=== PATIENT | male | born 1955 | race Caucasian/White ===

== ENCOUNTER → 2023-12-14 12:00 | Outpatient (REF) | payer MEDICARE, SELFPAY | LOC: DHSLP 12:00 | PROVIDERS: ATTENDING PHYSICIAN Internal Medicine; FAMILY PHYSICIAN Family Medicine | DX: G47.33 Obstructive sleep apnea (adult) (pediatric) (principal) | CPT/HCPCS: 95800 ==

== ENCOUNTER → 2024-03-05 11:44 | Outpatient (REF) | payer MEDICARE, SELFPAY | LOC: DHSLP 11:44 | PROVIDERS: ATTENDING PHYSICIAN Internal Medicine; FAMILY PHYSICIAN Family Medicine | DX: G47.33 Obstructive sleep apnea (adult) (pediatric) (principal) | CPT/HCPCS: 95811 ==

== ENCOUNTER 2024-12-06 06:20 | Day surgery (SDC) | payer MEDICARE, SELFPAY ==
[2024-12-06 07:36] LABS: Glucose - Point of Care 70 mg/dl (70-99)
== END 2024-12-06 08:54 | disposition home or self-care (01) ==
LOC: GI 06:20
PROVIDERS: ATTENDING PHYSICIAN Internal Medicine Gastroenterology
DX: Z12.11 Encounter for screening for malignant neoplasm of colon (principal); K64.8 Other hemorrhoids; Z80.0 Family history of malignant neoplasm of digestive organs
CPT/HCPCS: G0105; 82962